=== PATIENT | female | born 1950 | race Caucasian/White ===

== ENCOUNTER 2016-12-10 09:31 | Day surgery (SDC) | payer BC ==
[~2016-12-10] VITALS: Ht 156.2 cm; Wt 53.5 kg
[~2016-12-10 09:31] MED LIST: ASPIRIN E.C.81 M1 PO; Actonel PO; CALCIUM 600 +1 EAC3 PO; CALTRATE 6001 TABLE2 PO; COUMADIN,JANTOVE4 MG PO; COUMADIN3 M1 PO; NEURONTIN400 MG PO; PRADAXA150 MG PO; THERAGRAN1 TABLET PO; VITAMIN D35000 UNIT PO
== END 2016-12-10 10:41 | disposition home or self-care (01) ==
LOC: PAIN 09:31 → SDC 10:15 → PAIN 10:41
DX: M54.16 Radiculopathy, lumbar region (principal); M51.26 Other intervertebral disc displacement, lumbar region; M85.80 Other specified disorders of bone density and structure, unspecified site; I48.91 Unspecified atrial fibrillation; I47.1 Supraventricular tachycardia; K76.0 Fatty (change of) liver, not elsewhere classified; M47.896 Other spondylosis, lumbar region
CPT/HCPCS: J1100; J2250; J3010

== ENCOUNTER 2017-09-27 15:06 | Inpatient (IN) | payer OTHER, BC ==
[~2017-09-27] VITALS: Ht 154.9 cm; Wt 53.3 kg
[2017-09-27 16:26] LABS: HEMATOCRIT 47.5 % (36.0-46.0); MCH 28.4 PG (29.0-34.0); MCV 88.8 FL (83-99); MEAN PLAT.VOLUME 8.8 uM^3 (9.5-12.4); PLATELET COUNT 291 K/uL (156-360); RBC DIS.WIDTH-SD 39.1 % (39-53); RED BLOOD COUNT 5.35 M/uL (3.80-5.20); WHITE BLOOD COUNT 4.1 K/uL (4.1-10.2)
[2017-09-27 16:35] LABS: CHLORIDE 107 mEq/L (99-109); POTASSIUM 3.9 mEq/L (3.7-5.4); SODIUM 141 mEq/L (136-147)
[2017-09-27 16:37] LABS: GLUCOSE 101 mg/dL (70-99)
[2017-09-27 16:38] LABS: ANION GAP 8 MEQ/L (2-14)
[2017-09-27 16:41] LABS: GFR ESTIMATE (CALCULATED) > 59 mL/min/
[2017-09-27 16:42] LABS: UREA NITROGEN (BUN) 9 mg/dL (9-23)
[2017-09-27 16:47] LABS: TROP-I INTERPRETATION NEGATIVE; TROPONIN-I < 0.01 ng/mL (0.0-0.30)
[2017-09-27] MEDS ORDERED: SUPER CALCIUM600 MG PO (18:49)
[2017-09-27] MEDS ORDERED: TYLENOL EXTRA500 MG PO (18:50)
[2017-09-27] MEDS ORDERED: CARDIZEM30 MG PO (18:51)
[2017-09-27 21:09] VITALS: BP 128/79
[2017-09-27 23:21] LABS: TROP-I INTERPRETATION NEGATIVE; TROPONIN-I < 0.01 ng/mL (0.0-0.30)
[2017-09-28] VITALS (7 sets, daily range): BP systolic 92–131; BP diastolic 51–80
[2017-09-28 05:10] LABS: HEMATOCRIT 41.4 % (36.0-46.0); MCH 28.1 PG (29.0-34.0); MCHC 31.4 G/DL (30.0-36.0); MCV 89.4 FL (83-99); MEAN PLAT.VOLUME 8.9 uM^3 (9.5-12.4); PLATELET COUNT 224 K/uL (156-360); RBC DIS.WIDTH-CV 11.8 % (11.8-14.6); RBC DIS.WIDTH-SD 38.3 % (39-53); RED BLOOD COUNT 4.63 M/uL (3.80-5.20); WHITE BLOOD COUNT 3.2 K/uL (4.1-10.2)
[2017-09-28 05:29] LABS: TROP-I INTERPRETATION NEGATIVE; TROPONIN-I < 0.01 ng/mL (0.0-0.30)
[2017-09-28 05:44] LABS: ANION GAP 7 MEQ/L (2-14); CHLORIDE 110 MEQ/L (99-109); GFR ESTIMATE (CALCULATED) > 59 mL/min/; GLUCOSE 87 mg/dL (70-99); POTASSIUM 4.2 MEQ/L (3.7-5.4); SAMPLE HEMOLYSIS CHECK 0; SAMPLE ICTERIC CHECK 0; SAMPLE LIPEMIA CHECK 0; SODIUM 142 MEQ/L (136-147); UREA NITROGEN (BUN) 8 mg/dL (9-23)
[2017-09-29 04:09] VITALS: BP 98/55
[2017-09-29 07:10] VITALS: BP 104/59
[2017-09-29 11:25] VITALS: BP 107/65
== END 2017-09-29 15:15 | disposition home or self-care (01) | DRG 310 ==
LOC: EME 15:06 → 5WEST 18:42 → EDOF 18:42 → ENRESERV 18:45 → 5WEST 20:59 → CANRESERV 09-28 14:30 → ENRESERV 09-28 14:30 → 5WEST 09-29 15:15
PROVIDERS: Hospitalist
DX: I48.0 Paroxysmal atrial fibrillation (principal); R07.89 Other chest pain; M81.0 Age-related osteoporosis without current pathological fracture; F41.9 Anxiety disorder, unspecified; R42 Dizziness and giddiness; Z79.01 Long term (current) use of anticoagulants; Z80.0 Family history of malignant neoplasm of digestive organs
CPT/HCPCS: 71020; 80048; 84443; 84484; 85027; 93005; 93306; 99281; 99284; G0378; J7030